=== PATIENT | female | born 1985 | race African-American/Black ===

== ENCOUNTER 2016-11-30 22:00 | Emergency (ER) | payer MEDICAID, OTHER ==
[~2016-11-30] VITALS: Ht 157.5 cm; Wt 68.0 kg
[2016-11-30 23:10] LABS: Basophils # (auto) 0 uL; Basophils % (auto) 0.6 % (0.0-2.0); Eosinophils # (auto) 0 uL; Eosinophils % (auto) 0.3 % (0.0-7.0); Hematocrit 30.4 % (36.0-46.0); Hemoglobin 9.6 g/dL (12.2-16.2); Lymphocytes # (auto) 0.7 uL; Lymphocytes % (auto) 17.2 % (10.0-50.0); Mean Corpuscular Hemoglobin 30.4 pg (28.0-32.0); Mean Corpuscular Hgb Conc. 31.7 g/dL (32.0-36.0); Mean Corpuscular Volume 96.1 fL (80.0-100.0); Mean Platelet Volume 7.8 fL (6.9-10.8); Monocytes # (auto) 0.4 uL; Monocytes % (auto) 10.1 % (0.0-12.0); Neutrophils # (auto) 3.1 uL; Neutrophils % (auto) 71.8 % (37.0-80.0); Nucleated Red Blood Cells % 0.2 %; Platelet Count (auto) 208 10^3/uL (140-450); Red Cell Distribution Width 18.5 % (11.8-14.3); White Blood Cell 4.3 10^3/uL (4.4-10.8)
[2016-11-30 23:13] LABS: Albumin 3.5 g/dL (3.4-5.0); Anion Gap 9 (5-15); Aspartate Aminotransferase 14 U/L (15-37); BUN/Creatinine Ratio 20.5; Blood Urea Nitrogen 15 mg/dL (7-18); Calcium 8.5 mg/dL (8.5-10.1); Carbon Dioxide 23 mmol/L (21-32); Chloride 113 mmol/L (98-107); GFR African American 120 mL/min; GFR Non-African American 99 mL/min; Glucose 90 mg/dL (74-106); Potassium 3.6 mmol/L (3.5-5.1); Sodium 145 mmol/L (136-145)
[2016-11-30 23:18] LABS: Alkaline Phosphatase 70 U/L (45-117); Bilirubin, Total 0.2 mg/dL (0.2-1.0); Total Protein 7.6 g/dL (6.4-8.2)
[2016-11-30 23:21] LABS: B-Type Natriuretic Peptide 14.93 pg/mL (0-100)
[2016-11-30 23:30] LABS: Temperature: 21.9 C (20.0-25.0)
[2016-11-30 23:36] LABS: Partial Thromboplastin Time 40.9 sec (22.64-33.71)
[2016-11-30 23:39] LABS: Reticulocyte Count 2.91 % (0.5-1.5)
[2016-11-30 23:45] LABS: INR 4.16 (0.9-1.15)
[2016-11-30] MEDS ORDERED: HYDROmorphone HCL 2 MG/ML VL IM ONE (23:45)
[2016-12-01 01:00] VITALS: BP 110/62
== END 2016-12-01 01:26 | disposition home or self-care (01) ==
LOC: EDBD 22:00 → ER 22:10
DX: D57.1 Sickle-cell disease without crisis (principal); Z72.89 Other problems related to lifestyle; Z79.891 Long term (current) use of opiate analgesic
CPT/HCPCS: 36415; 71010; 80053; 80307; 83735; 83880; 84484; 84702; 85025; 85045; 85610; 85730; 96372; 99285; J1170